=== PATIENT | male | born 1995 | race Asian ===

== ENCOUNTER 2020-07-07 16:34 | Outpatient (CLI) | payer OTHER | END 2020-07-07 16:35 | disposition home or self-care (01) | LOC: COV 16:34 | PROVIDERS: ATTEND Family Medicine | DX: R53.83 Other fatigue (principal); Z20.828 Contact with and (suspected) exposure to other viral communicable diseases; M79.10 Myalgia, unspecified site; J02.9 Acute pharyngitis, unspecified; R09.81 Nasal congestion; R19.7 Diarrhea, unspecified; R11.0 Nausea ==